=== PATIENT | female | born 1995 | race Caucasian/White ===

== ENCOUNTER 2018-02-12 19:23 | Emergency (ER) | payer BC ==
[2018-02-12] MEDS ORDERED: LEVO1TAB31 PO (19:31)
[2018-02-12] MEDS ORDERED: CETI-176 PO (19:31)
--- NOTE | 2018-02-12 19:32 | ER Report ---
History and Physical Time Seen By MD: 19:32 Hx. of Stated Complaint: PATIENT ROLLED RIGHT ANKLE, ABOUT 20MINS AGO RUNNING AFTER DOG. HPI/ROS CHIEF COMPLAINT: ankle injury HISTORY OF PRESENT ILLNESS: This is a 22 year old female. She was running after her dog and rolled her right ankle. She was able to bear weight, but caused significant pain. Has a little bit of tingling in her big toe, but otherwise normal sensation. swelling over later side of her ankle. Can move the foot and ankle, but does cause pain. History of prior ankle injury, but no problems since. Allergies: Coded Allergies: No Known Drug Allergies (Unverified , 02/12/18) Home Meds Reported Medications Cetirizine Hcl (ZYRTEC) 10 Mg Tablet, 10 MG PO QDAY, TAB 02/12/18 Levonorgestrel-Eth Estradiol (AVIANE) 1 Each Tablet, 1 EACH PO QDAY 02/12/18 Reviewed Nurses Notes: Yes Constitutional Vital Sign - Last 24 Hours 02/12/18 02/12/18 19:29 20:14 Temp 99.0 Pulse 62 77 Resp 16 16 B/P (MAP) 127/75 113/63 (80) Pulse Ox 95 96 O2 Delivery Room Air Physical Exam General appearance: Patient is alert. Musculoskeletal: Right ankle shows significant swelling over latera malleolus. There is no obvious deformity. No bruising. Medial malleolus is non-tender. Lateral malleolus is tender. Head of the fifth metatarsal is nontender. No tenderness in forefoot. No tenderness with squeeze of the lower leg. Weight bearing: Weight bearing not tested due to pain. Neurologic: The patient has normal sensation distal to the injury. Active range of motion is intact, but with pain. Cardiovascular: Normal dorsalis pedis and posterior tibialis pulses. Normal capillary refill. Skin: No rash. No skin breakdown. DIFFERENTIAL DIAGNOSIS: After history and physical exam differential diagnosis was considered for ankle injury including sprain, fracture, dislocation and soft tissue injury. Medical Decision Making EKG/Imaging Imaging HISTORY: Rolled right ankle, lateral malleolus pain and swelling. ADDITIONAL HISTORY: None. COMPARISON: None. FINDINGS: 3 views were obtained of the right ankle. There is soft tissue swelling laterally. No fracture is identified. Ankle mortise is intact. Subtalar joint is within normal limits. Talonavicular and calcaneocuboid articulations are normal. Well-corticated calcification of the talonavicular joint is likely an accessory ossicle. There is no fracture identified of the base of the fifth metatarsal on the images provided. IMPRESSION: Soft tissue swelling without evidence of fracture. If the patient has ongoing symptoms, follow-up study may be considered in 7-10 days. Report Dictated By: Georgina Boykin MD at 02/12/2018 8:01 PM ED Course/Re-evaluation ED Course Negative x-ray which I discussed with the patient. Conservative treatment now and if not improving then will need to see orthopedic surgery. TONA wrap for compression, range of motion, Ibuprofen and ice. Decision to Disposition Date: February 12, 2018 Decision to Disposition Time: 20:12 Depart Departure Latest Vital Signs Vital Signs Date Time Temp Pulse Resp B/P (MAP) Pulse Ox O2 Delivery O2 Flow Rate FiO2 02/12/18 20:14 77 16 113/63 (80) 96 02/12/18 19:29 99.0 Room Air Impression: Primary Impression: Ankle sprain Condition: Improved Disposition: HOME OR SELF-CARE Patient Instructions: Ankle Sprain (ED) Additional Instructions: Ibuprofen 200mg over the counter tablets, take 4 tablets three times a day with food. Apply ice 20 minutes every 1-2 hours while awake. An TONA wrap can be used for compression to help reduce swelling. Rest the injured area, keep it elevated while at rest. Begin gentle range of motion exercises. If not improving over the next 1-2 weeks, please see orthopedic surgery for further evaluation. Problem Qualifiers Primary Impression: Ankle sprain Encounter type: initial encounter Involved ligament of ankle: unspecified ligament Laterality: right Qualified Codes: S93.401A - Sprain of unspecified ligament of right ankle, initial encounter ABDIRAHMAN ABREU MD February 12, 2018 19:32
--- NOTE | 2018-02-12 20:07 | RADIOLOGY IMAGING REPORT ---
FACILITY: [facility] PATIENT NAME: Janet Cruz : 1995 MR: [id number] V: [id number] EXAM DATE: ORDERING PHYSICIAN: ABDIRAHMAN ABREU TECHNOLOGIST: Location: [facility] Patient: Janet Cruz : 1995 Visit/Account:[id number] Date of Sevice: 02/12/2018 ANKLE 3 VIEW MIN RIGHT HISTORY: Rolled right ankle, lateral malleolus pain and swelling. ADDITIONAL HISTORY: None. COMPARISON: None. FINDINGS: 3 views were obtained of the right ankle. There is soft tissue swelling laterally. No fracture is wai ntified. Ankle mortise is intact. Subtalar joint is within normal limits. Talonavicular and calcaneoc uboid articulations are normal. Well-corticated calcification of the talonavicular joint is likely an accessory ossicle. There is no fracture identified of the base of the fifth metatarsal on the images provided. IMPRESSION: Soft tissue swelling without evidence of fracture. If the patient has ongoing symptoms, follow-up kannan dy may be considered in 7-10 days. Report Dictated By: Georgina Boykin MD at 02/12/2018 8:01 PM Report E-Signed By: Georgina Boykin MD at 02/12/2018 8:03 PM WSN:[id number]
[2018-02-12 20:14] VITALS: BP 113/63
== END 2018-02-12 20:18 | disposition home or self-care (01) ==
LOC: ER 19:34
DX: S93.401A Sprain of unspecified ligament of right ankle, initial encounter (principal)
CPT/HCPCS: 99283

== ENCOUNTER 2018-05-24 22:19 | Emergency (ER) | payer BC ==
[~2018-05-24 22:19] MED LIST: CETI-176 PO; LEVO1TAB31 PO
--- NOTE | 2018-05-24 22:28 | ER Report ---
History and Physical Time Seen By MD: 22:29 HPI/ROS CHIEF COMPLAINT: Hives HISTORY OF PRESENT ILLNESS: This is a 22-year-old female. Floral hives earlier today. Took some Benadryl and these went away. There are mainly on her elbows and arms. Later the rash came back as well as itching. No swelling in her throat, mouth, tongue, lips. No trouble swallowing. No shortness of breath or difficulty breathing. No history of allergic reaction in the past but just she does have seasonal allergies and takes cetirizine daily. Reviewed chemicals, soaps, detergents, fabric softeners, makeup, perfumes, soaps, shampoos etc. also reviewed any changes in foods. Initially was unable to determine anything new but then later in the visit realize that she has a new 3 and one shampoo body wash that she had been using the last couple of days. Suggested that that would be the source. Allergies: Coded Allergies: No Known Drug Allergies (Unverified , 02/12/18) Home Meds Active Scripts Epinephrine (EPIPEN 2-DANIEL) 0.3 Mg/0.3 Ml Pen.injctr, 0.3 MG IM DIRECTED, #1 PACK 0 Refills Prov:ABDIRAHMAN ABREU MD 05/25/18 Prednisone (PREDNISONE) 20 Mg Tablet, 40 MG PO QDAY, #4 TAB 0 Refills Prov:ABDIRAHMAN ABREU MD 05/25/18 Reported Medications Cetirizine Hcl (ZYRTEC) 10 Mg Tablet, 10 MG PO QDAY, TAB 02/12/18 Levonorgestrel-Eth Estradiol (AVIANE) 1 Each Tablet, 1 EACH PO QDAY 02/12/18 Reviewed Nurses Notes: Yes Constitutional Vital Sign - Last 24 Hours 05/24/18 05/24/18 05/24/18 05/24/18 22:19 22:23 22:27 22:30 Temp 98.4 Pulse ??? 68 Resp 18 B/P (MAP) 128/78 (95) 117/84 (95) Pulse Ox 97 O2 Delivery Room Air 05/24/18 05/24/18 05/24/18 05/24/18 22:34 22:49 23:00 23:04 Pulse 64 73 66 B/P (MAP) 113/79 (90) Pulse Ox 99 98 98 05/24/18 23:19 Pulse Ox 95 Physical Exam General Appearance: The patient is alert, has no immediate need for airway protection and no current signs of toxicity. Eyes: Pupils equal and round no injection. ENT: Normal oral mucosa. Moist mucous membranes. Tympanic membranes are normal. Neck: Neck is supple and non tender. Respiratory: Chest is non tender, lungs are clear to auscultation. Cardiac: regular rate and rhythm Skin: Hives on the arms and trunk DIFFERENTIAL DIAGNOSIS: After history and physical exam differential diagnosis was considered for allergic reaction Medical Decision Making ED Course/Re-evaluation ED Course Improved with oral Benadryl, Pepcid, and prednisone. Discussed continuing these medicines. Also discussed possible need for EpiPen Decision to Disposition Date: May 25, 2018 Decision to Disposition Time: 00:23 Depart Departure Latest Vital Signs Vital Signs Date Time Temp Pulse Resp B/P (MAP) Pulse Ox O2 Delivery O2 Flow Rate FiO2 05/24/18 23:19 95 05/24/18 23:04 66 05/24/18 23:00 113/79 (90) 05/24/18 22:27 98.4 18 Room Air Impression: Primary Impression: Allergic reaction Condition: Improved Disposition: HOME OR SELF-CARE New Scripts Epinephrine (EPIPEN 2-DANIEL) 0.3 Mg/0.3 Ml Pen.injctr 0.3 MG IM DIRECTED, #1 PACK 0 Refills Prov: ABDIRAHMAN ABREU MD 05/25/18 Prednisone (PREDNISONE) 20 Mg Tablet 40 MG PO QDAY, #4 TAB 0 Refills Prov: ABDIRAHMAN ABREU MD 05/25/18 Patient Instructions: General Allergic Reaction (ED), Urticaria (ED) Additional Instructions: Take Prednisone 20mg tablets, 2 tablets once a day. Take the 2 tablets tomorrow. On Thursday, you can wait and see if you have recurrent symptoms. If you do, resume the prednisone taking 2 tablets on Thursday and 2 tablets on . Take Pepcid 20mg twice a day Take Benadryl 25mg every 6 hours as needed for itching and rash. Follow-up with your regular doctor on return home. We are going to give you an epipen prescription. These are epinephrine autoinjec tor pens that people use if having a severe allergic reaction. These can be used for swelling of throat, tongue or mouth/lips, or if trouble breathing or swallowing associated with an allergic reaction. Problem Qualifiers Primary Impression: Allergic reaction Encounter type: initial encounter Qualified Codes: T78.40XA - Allergy, unspecified, initial encounter ABDIRAHMAN ABREU MD May 24, 2018 22:28
[2018-05-24] MEDS ORDERED: FAMOTIDINE 20 MG TAB PO ONE (22:45)
[2018-05-24] MEDS ORDERED: diphenhydrAMINE 25 MG CAP PO ONE (22:45)
[2018-05-24] MEDS ORDERED: predniSONE 20 MG TAB PO ONE (22:45)
[2018-05-24 23:00] VITALS: BP 113/79
[2018-05-25] MEDS ORDERED: EPIN0.3P15 IM (00:24)
[2018-05-25] MEDS ORDERED: PRED20TA6 PO (00:24)
[2018-05-25] MEDS ORDERED: predniSONE 20 MG TAB PO ONE (00:25)
[2018-05-25] MEDS ORDERED: FAMOTIDINE 20 MG TAB PO ONE (00:25)
== END 2018-05-25 00:38 | disposition home or self-care (01) ==
LOC: ER 22:40
DX: T78.40XA Allergy, unspecified, initial encounter (principal)
CPT/HCPCS: 99283; J7512; Q0163